=== PATIENT | male | born 1950 | race Caucasian/White ===

== ENCOUNTER 2017-07-17 20:55 | Emergency (ER) | payer OTHER, MEDICAID ==
[~2017-07-17] VITALS: Ht 180.3 cm; Wt 81.6 kg
[2017-07-17 21:06] VITALS: BP_SYST 151
[2017-07-17 22:20] VITALS: BP_SYST 147
== END 2017-07-17 22:20 | disposition home or self-care (01) ==
LOC: SED 20:55
DX: K64.9 Unspecified hemorrhoids (principal); F20.9 Schizophrenia, unspecified; F31.9 Bipolar disorder, unspecified; Z90.49 Acquired absence of other specified parts of digestive tract
CPT/HCPCS: 82272; 99283